=== PATIENT | male | born 1950 | race Caucasian/White ===

== ENCOUNTER 2017-12-23 22:07 | Inpatient (IN) | payer OTHER ==
[~2017-12-23] VITALS: Ht 172.7 cm; Wt 114.9 kg
[2017-12-23] MEDS ORDERED: HYDR-3799 PO (22:36)
[2017-12-23] MEDS ORDERED: GABA300C5 PO (22:36)
[2017-12-23] MEDS ORDERED: OXYC30TA PO (22:36)
[2017-12-23] MEDS ORDERED: METO50TA PO (22:36)
[2017-12-23] MEDS ORDERED: ASPI-516 CHEW (22:36)
[2017-12-24 08:28] VITALS: BP 160/87; PULSE 99; RESP 22; TEMP 97.5; O2SAT 93
[2017-12-24] MEDS ORDERED: EZET10 PO (08:52)
[2017-12-24] MEDS ORDERED: HYDR12.57 PO (08:52)
[2017-12-24] MEDS ORDERED: SYMB160A INH (08:52)
[2017-12-24] MEDS ORDERED: VITA1000 PO (08:52)
[2017-12-24] MEDS ORDERED: TAMS5CAP PO (08:52)
[2017-12-24] MEDS ORDERED: DIAZ5TAB PO (08:52)
[2017-12-24] MEDS ORDERED: NON-FORMULARY DRUG (Oxycodone 30 MG) PO PRN (11:45)
[2017-12-24] MEDS ORDERED: DEXTROSE 50% IN WATER 50 ML VIAL(D50) IV PUSH PRN (12:15)
[2017-12-24] MEDS ORDERED: GLUCAGON 1 MG/ML VIAL OTHER PRN (12:15)
[2017-12-24] MEDS ORDERED: cloNIDine HCL 0.1 MG TAB PO PRN (12:15)
--- NOTE | 2017-12-24 12:16 | HHI.HP ---
[facility] Admission Diagnosis Diagnoses: (1) COPD (chronic obstructive pulmonary disease) Diagnosis: Principal (2) COPD exacerbation Diagnosis: Principal (3) Hypertension Diagnosis: Secondary (4) Osteoarthritis Diagnosis: Secondary (5) Tobacco abuse Diagnosis: Secondary (6) Obese Diagnosis: Secondary (7) BPH (benign prostatic hyperplasia) Diagnosis: Secondary (8) Anxiety Diagnosis: Secondary (9) Hyperlipidemia Diagnosis: Secondary (10) Chronic pain Diagnosis: Secondary Chief Complaint: Difficulty in breathing Travel History International Travel<30 Days: No Contact w/Intl Traveler <30 Da: No Traveled to Known Affected Are: No History of Present Illness Patient is a 67-year-old gentleman who [facility] department with increasing shortness of breath. Patient has known COPD and is on chronic steroids and oxygen at home. He states that he ran out of some of his medications also. He is waiting for the [facility] in late [place] to refill them. He is on oxygen at home. Somewhere between 2-5 L/ h came in with increasing shortness of breath and was noted to have a pulse ox about 80% when he arrived off oxygen but he again is chronically on oxygen and has increasing shortness of breath and cough and congestion Will be admitted and placed on antibiotics and steroids Mucinex incentive spirometry and will be given diet Review of Systems Constitutional: COMPLAINS OF: Fatigue, DENIES: Diaphoretic episodes, Fever, Weight gain, Chills, Dizziness, Change in appetite, Night Sweats Endocrine: DENIES: Heat/cold intolerance, Polydipsia, Polyuria, Polyphagia Eyes: DENIES: Blurred vision, Diplopia, Eye inflammation, Eye pain, Vision loss , Photosensitivity, Double Vision Ears, nose, mouth, throat: COMPLAINS OF: Hearing loss, DENIES: Tinnitus, Vertigo, Nasal discharge, Oral lesions, Throat pain, Hoarseness, Ear Pain, Running Nose, Epistaxis, Sinus Pain, Toothache, Odynophagia Respiratory: COMPLAINS OF: Cough, Sputum production, Shortness of breath, DENIES: Apneas, Snoring, Wheezing, Hemoptysis Cardiovascular: COMPLAINS OF: Dyspnea on Exertion, DENIES: Chest pain, Palpitations, Syncope, PND, Lower Extremity Edema, Orthopnea, Claudication Gastrointestinal: DENIES: Abdominal pain, Black stools, Bloody stools, Constipation, Diarrhea, Nausea, Vomiting, Difficulty Swallowing, Anorexia Genitourinary: DENIES: Sexual dysfunction, Urinary frequency, Urinary incontinence Musculoskeletal: COMPLAINS OF: Joint pain, Back pain, Neck pain, DENIES: Muscle aches, Stiffness, Joint Swelling Integumentary: DENIES: Abnormal pigmentation, Nail changes, Pruritus, Rash Hematologic/lymphatic: DENIES: Bruising, Lymphadenopathy Immunologic/allergic: DENIES: Eczema, Urticaria Neurologic: DENIES: Abnormal gait, Headache, Localized weakness, Paresthesias, Seizures, Speech Problems, Tremor, Poor Balance Psychiatric: COMPLAINS OF: Anxiety, DENIES: Confusion, Mood changes, Depression , Hallucinations, Agitation, Suicidal Ideation, Homicidal Ideation, Delusions Except as stated in HPI: all other systems reviewed are Neg Past Family Social History Past Medical History Hypertension COPD Chronic oxygen use BPH Chronic pain Neuropathy Obesity Hyperlipidemia Anxiety Past Surgical History Cholecystectomy Bilateral knee arthroscopic surgeries Polyps removed from his throat Tonsillectomy Shoulder surgery and knee surgery Reported Medications Reported Meds & Active Scripts Active Reported Diazepam 5 Mg Tab 5 Mg PO BID PRN Symbicort Inh (Budesonide/Formoterol Fumarate) 160-4.5 Mcg/Act Aero 2 Puff INH Q12HR Zetia (Ezetimibe) 10 Mg Tab 10 Mg PO DAILY Vitamin D-1000 (Cholecalciferol) 1,000 Unit Tab 2,000 Mg PO DAILY Flomax (Tamsulosin HCl) 0.4 Mg Cap 0.4 Mg PO DAILY Hydrochlorothiazide 12.5 Mg Cap 12.5 Mg PO DAILY Oxycodone (Oxycodone HCl) 30 Mg Tab 30 Mg PO Q6H PRN Aspirin 81 Mg Chew 81 Mg CHEW DAILY Gabapentin 300 Mg Cap 900 Mg PO HS Hydralazine HCl 25 Mg Tablet 25 Mg PO TID Metoprolol Tartrate 50 Mg Tab 50 Mg PO DAILY Allergies: Coded Allergies: lisinopril (Verified Allergy, Severe, 12/23/17) shellfish derived (Verified Allergy, Severe, 12/23/17) pneumococcal vaccine (Verified Adverse Reaction, Intermediate, 12/23/17) Active Ordered Medications Current Medications Pneumococcal Polyvalent Vaccine (Pneumovax-23 Inj) 25 mcg ONCE ONCE IM ; Start 12/25/17 at 10:00; Stop 12/25/17 at 10:01 Aspirin (Aspirin Chew) 81 mg DAILY CHEW ; Start 12/24/17 at 11:45 Budesonide/ Formoterol Fumarate (Symbicort 160-4.5 Mcg Inh) 2 puff Q12HR INH ; Start 12/24/17 at 11:45 Cholecalciferol (Vitamin D3) 2,000 units DAILY PO ; Start 12/24/17 at 11:45 Diazepam (Valium) 5 mg BID PRN PO ANXIETY; Start 12/24/17 at 11:45 EZETIMIBE (Zetia) 10 mg DAILY PO ; Start 12/24/17 at 11:45 Gabapentin (Neurontin) 900 mg HS PO ; Start 12/24/17 at 21:00 Hydralazine HCl (Apresoline) 25 mg TID PO ; Start 12/24/17 at 13:00 Hydrochlorothiazide (Microzide) 12.5 mg DAILY PO ; Start 12/24/17 at 11:45 Metoprolol Tartrate (Lopressor) 50 mg DAILY PO ; Start 12/24/17 at 11:45 Tamsulosin HCl (Flomax) 0.4 mg DAILY PO ; Start 12/24/17 at 11:45 Family History Mother of heart attack and uncontrolled hypertension Father is unknown Social History Former smoker used to smoke 2 packs a day quit in 2013 Denies any alcohol or illicits Physical Exam Vital Signs Vital Signs Date Time Temp Pulse Resp B/P (MAP) Pulse Ox O2 Delivery O2 Flow Rate FiO2 12/24/17 08:28 97.5 99 22 160/87 (111) 93 Physical Exam GENERAL: This is a well-nourished, well-developed patient, in moderate distress. SKIN: No rashes, ecchymoses or lesions. Cool and dry. HEAD: Atraumatic. Normocephalic. No temporal or scalp tenderness. EYES: Pupils equal round and reactive. Extraocular motions intact. No scleral icterus. No injection or drainage. ENT: Nose without bleeding, purulent drainage or septal hematoma. Throat without erythema, tonsillar hypertrophy or exudate. Uvula midline. Airway patent. NECK: Trachea midline. No JVD or lymphadenopathy. Supple, nontender, no meningeal signs. CARDIOVASCULAR: Regular rate and rhythm without murmurs, gallops, or rubs. S1- S2 no S3 or S4 RESPIRATORY: Coarse breath sounds bilaterally with scattered rhonchi and wheezes. Breath sounds equal bilaterally. No wheezes, rales, or rhonchi. GASTROINTESTINAL: Abdomen soft, non-tender, nondistended. No hepato-splenomegaly , or palpable masses. No guarding. Obese MUSCULOSKELETAL: Extremities without clubbing, cyanosis, or edema. No joint tenderness, effusion, or edema noted. No calf tenderness. Negative Homans sign bilaterally. NEUROLOGICAL: Awake and alert. Cranial nerves II through XII intact. Motor and sensory grossly within normal limits. 4 out of 5 muscle strength in all muscle groups. Normal speech. Insight and judgment is limited Mood and behavior somewhat appropriate Imaging INDICATIONS: Shortness of breath. CLINICAL DATA: This is the patient's initial encounter. Patient reports that signs and symptoms have been present for 1 day and indicates a pain score of 8/ 10. MEDICAL/SURGICAL HISTORY: Chronic obstructive pulmonary disease. None. COMPARISON: No prior exams available for comparison. FINDINGS: A single AP erect portable view of the chest was obtained and demonstrate streaky infiltrate in both lung bases left greater than right. There is no focal consolidation or effusion. The heart size is within normal limits. The bony thorax is intact with degenerative change in both glenohumeral joints. Multiple overlying electrocardiogram leads are present. CONCLUSION: Mild streaky infiltrate in both lung bases left greater than right. The chronicity of the finding is not known without prior studies for comparison. This may be chronic and represent scarring or be more acute and could represent an early pneumonia. Caprini VTE Risk Assessment Caprini VTE Risk Assessment: Mod/High Risk (score >= 2) Caprini Risk Assessment Model Point Value = 1 Point Value = 2 Point Value = 3 Point Value = 5 Age 41-60 Minor surgery BMI > 25 kg/m2 Swollen legs Varicose veins or History of unexplained or recurrent spontaneous Oral contraceptives or hormone replacement Sepsis (< 1 month) Serious lung disease, including pneumonia (< 1 month) Abnormal pulmonary function Acute myocardial infarction Congestive heart failure (< 1 month) History of inflammatory bowel disease Medical patient at bed rest Age 61-74 Arthroscopic surgery Major open surgery (> 45 min) Laparoscopic surgery (> 45 min) Malignancy Confined to bed (> 72 hours) Immobilizing plaster cast Central venous access Age >= 75 History of VTE Family history of VTE Factor V Leiden Prothrombin [id number] Lupus anticoagulant Anticardiolipin antibodies Elevated serum homocysteine Heparin-induced thrombocytopenia Other congenital or acquired thrombophilia Stroke (< 1 month) Elective arthroplasty Hip, pelvis, or leg fracture Acute spinal cord injury (< 1 month) Prophylaxis Regimen Total Risk Factor Score Risk Level Prophylaxis Regimen 0-1 Low Early ambulation 2 Moderate Order ONE of the following: *Sequential Compression Device (SCD) *Heparin 5000 units SQ BID 3-4 Higher Order ONE of the following medications: *Heparin 5000 units SQ TID *Enoxaparin/Lovenox 40 mg SQ daily (WT < 150 kg, CrCl > 30 mL/min) *Enoxaparin/Lovenox 30 mg SQ daily (WT < 150 kg, CrCl > 10-29 mL/min) *Enoxaparin/Lovenox 30 mg SQ BID (WT < 150 kg, CrCl > 30 mL/min) AND/OR *Sequential Compression Device (SCD) 5 or more Highest Order ONE of the following medications: *Heparin 5000 units SQ TID (Preferred with Epidurals) *Enoxaparin/Lovenox 40 mg SQ daily (WT < 150 kg, CrCl > 30 mL/min) *Enoxaparin/Lovenox 30 mg SQ daily (WT < 150 kg, CrCl > 10-29 mL/min) *Enoxaparin/Lovenox 30 mg SQ BID (WT < 150 kg, CrCl > 30 mL/min) AND *Sequential Compression Device (SCD) Assessment and Plan Assessment and Plan COPD exacerbation borderline pneumonia Continue on antibiotics with Rocephin and Zithromax Continue on his Symbicort Duo nebs every 6 hours and every 2 hours as needed Incentive spirometry Mucinex Hypertension resume home medications metoprolol and hydralazine and hydrochlorothiazide BPH resume Flomax Chronic pain resume his oxycodone 30 mg every 6 hours Anxiety resume his Valium Hyperlipidemia continue on his Zetia Gabapentin for chronic pain continue it Oxycodone for his chronic pain DVT and GI prophylaxis Code Status Full code Discussed Condition With RN and patient and Physician Certification 2 Midnight Certification Type: Admission for Inpatient Services Order for Inpatient Services The services are ordered in accordance with Medicare regulations or non- Medicare payer requirements, as applicable. In the case of services not specified as inpatient-only, they are appropriately provided as inpatient services in accordance with the 2-midnight benchmark. Estimated LOS (days): 3 days is the estimated time the patient will need to remain in the hospital, assuming treatment plan goals are met and no additional complications. Post-Hospital Plan: Not yet determined Morgan Martinez DO Dec 24, 2017 12:16
[2017-12-24] MEDS ORDERED: RESP: ALBUTEROL 2.5 MG/IPRATROPIUM 0.5 MG NEB (PRN) INH (12:30)
[2017-12-24] MEDS ORDERED: SODIUM CHLORIDE 0.9% FLUSH 10 ML FLUSH IV FLUSH PRN (12:30)
[2017-12-24] MEDS ORDERED: BISACODYL 10 MG SUPP RECTAL PRN (12:30)
[2017-12-24] MEDS ORDERED: oxyCODONE/ACETAMINOPHEN 5 MG/325 MG TAB PO PRN (12:30)
[2017-12-24] MEDS ORDERED: SENNOSIDES 8.6 MG TAB PO PRN (12:30)
[2017-12-24] MEDS ORDERED: oxyCODONE/ACETAMINOPHEN 10 MG/325 MG TAB PO PRN (12:30)
[2017-12-24] MEDS ORDERED: METOCLOPRAMIDE HCL 10 MG/2 ML VIAL IV PUSH PRN (12:30)
[2017-12-24] MEDS ORDERED: LACTULOSE SYRUP 20 GM/30 ML CUP PO PRN (12:30)
[2017-12-24] MEDS ORDERED: NALOXONE HCL 0.4 MG/ML AMP IV PUSH PRN (12:30)
[2017-12-24] MEDS ORDERED: MAGNESIUM HYDROXIDE SUSP 30 ML CUP PO PRN (12:30)
[2017-12-24] MEDS ORDERED: ACETAMINOPHEN 325 MG TAB PO PRN ×2 (12:30)
[2017-12-24] MEDS ORDERED: MORPHINE SULFATE 4 MG/ML INJ IV PUSH PRN ×3 (13:00)
[2017-12-24] MEDS ORDERED: ONDANSETRON ODT 4 MG TAB PO PRN (13:00)
[2017-12-24] MEDS ORDERED: guaiFENesin E.R. 600 MG TAB PO ONE (13:00)
[2017-12-24] MEDS: hydrALAZINE HCL 25 MG TAB PO SCH ×2 (13:17→17:52)
[2017-12-24] MEDS: EZETIMIBE 10 MG TAB PO SCH (13:17)
[2017-12-24] MEDS: ASPIRIN 81 MG CHEW TAB CHEW SCH (13:17)
[2017-12-24] MEDS: HYDROCHLOROTHIAZIDE 12.5 MG CAP PO SCH (13:17)
[2017-12-24] MEDS: METOPROLOL TARTRATE 50 MG TAB PO SCH (13:18)
[2017-12-24] MEDS: TAMSULOSIN HCL 0.4 MG CAP PO SCH (13:18)
[2017-12-24] MEDS: CHOLECALCIFEROL (VIT D3) 1000 UNIT TAB PO SCH (13:18)
[2017-12-24] MEDS: ENOXAPARIN SODIUM 40 MG/0.4 ML SYRINGE SQ SCH (14:00)
[2017-12-24] MEDS: cefTRIAXone INJ 1,000 MG in SODIUM CHLORIDE 0.9% INJ 100 ML IV SCH (14:35)
[2017-12-24] MEDS: DIAZEPAM 5 MG TAB PO PRN ×2 (14:35→21:27)
[2017-12-24] MEDS: SODIUM CHLOR 0.9% 1000 ML INJ 1,000 ML IV SCH ×2 (14:35→22:54)
[2017-12-24] MEDS: methylPREDNISolone SOD SUCC 125 MG/2 ML VIAL IV PUSH SCH ×2 (14:35→17:55)
[2017-12-24] MEDS: AZITHROMYCIN INJ 500 MG in SODIUM CHLOR 0.9% 250 ML INJ 250 ML IV SCH (15:24)
[2017-12-24 15:45] LABS: TROPONIN I LESS THAN 0.02 NG/ML (0.02-0.05)
[2017-12-24 16:25] VITALS: BP 129/73; PULSE 69; RESP 21; TEMP 97.3; O2SAT 93
[2017-12-24] MEDS: INSULIN ASPART SUPPLEMENTAL SCALE SQ SCH ×2 (17:00→20:40)
[2017-12-24] MEDS: RESP: ALBUTEROL 2.5 MG/IPRATROPIUM 0.5 MG NEB (SCH) INH ×2 (17:19→21:27)
[2017-12-24 17:20] VITALS: O2SAT 91
[2017-12-24] MEDS: GABAPENTIN 300 MG CAP PO SCH (17:52)
[2017-12-24 20:00] VITALS: BP 160/93; PULSE 71; RESP 18; TEMP 97.7; O2SAT 95
[2017-12-24] MEDS: guaiFENesin E.R. 600 MG TAB PO SCH (20:40)
[2017-12-24] MEDS: SODIUM CHLORIDE 0.9% FLUSH 10 ML FLUSH IV FLUSH SCH (20:40)
[2017-12-24] MEDS: DOCUSATE SODIUM 50 MG/SENNA 8.6 MG TAB PO SCH (20:40)
[2017-12-24] MEDS ORDERED: GABAPENTIN 300 MG CAP PO SCH (21:00)
[2017-12-24] MEDS ORDERED: SODIUM CHLORIDE 0.9% FLUSH 10 ML FLUSH IV FLUSH SCH (21:00)
[2017-12-24 21:07] VITALS: PULSE 87
[2017-12-24] MEDS: BUDESONIDE-FORMOTEROL 160/4.5 MCG INHALER INH SCH (21:20)
[2017-12-24 21:22] LABS: TROPONIN I LESS THAN 0.02 NG/ML (0.02-0.05)
[2017-12-24 21:27] VITALS: O2SAT 92
[2017-12-25] VITALS (8 sets, daily range): BP systolic 126–156; BP diastolic 66–87; PULSE 65–89; RESP 18; TEMP 97.3–97.9; O2SAT 92–95
[2017-12-25] MEDS: methylPREDNISolone SOD SUCC 125 MG/2 ML VIAL IV PUSH SCH ×5 (00:35→23:27)
[2017-12-25] MEDS: RESP: ALBUTEROL 2.5 MG/IPRATROPIUM 0.5 MG NEB (SCH) INH ×4 (03:41→22:09)
[2017-12-25 06:05] LABS: AUTOMATED NEUTROPHIL # 8.1 TH/MM3 (1.8-7.7); BASOPHIL % 0.1 % (0.0-2.0); HEMATOCRIT 38.3 % (39.0-51.0); LYMPH % 8.2 % (9.0-44.0); LYMPHOCYTE # 0.7 TH/MM3 (1.0-4.8); MEAN CELL VOLUME 87.7 FL (80.0-100.0); MEAN CORPUSCULAR HEMOGLOBIN 29.8 PG (27.0-34.0); MEAN PLATELET VOLUME 7.4 FL (7.0-11.0); MONO % 2.2 % (0.0-8.0); MONOCYTE # 0.2 TH/MM3 (0-0.9); NEUT % 89.5 % (16.0-70.0); PLATELET COUNT 230 TH/MM3 (150-450); RED BLOOD COUNT 4.37 MIL/MM3 (4.50-5.90); RED CELL DISTRIBUTION WIDTH 15.1 % (11.6-17.2); WHITE BLOOD COUNT 9.1 TH/MM3 (4.0-11.0)
[2017-12-25 06:28] LABS: AST (GOT) 18 U/L (15-37); BICARBONATE 36.2 MEQ/L (21.0-32.0); BLOOD UREA NITROGEN 13 MG/DL (7-18); CALCIUM 9.1 MG/DL (8.5-10.1); CHLORIDE 88 MEQ/L (98-107); GLOMERULAR FILTRATION RATE 97 ML/MIN (>89); GLUCOSE,RANDOM 156 MG/DL (74-106); SODIUM (NA) 131 MEQ/L (136-145)
[2017-12-25 06:29] LABS: MAGNESIUM 1.9 MG/DL (1.5-2.5)
[2017-12-25 06:37] LABS: ALKALINE PHOSPHATASE 53 U/L (45-117); ALT (GPT) 28 U/L (12-78); FREE T4 1.19 NG/DL (0.76-1.46); PHOSPHORUS 2.7 MG/DL (2.5-4.9); TOTAL BILIRUBIN ADULT 0.3 MG/DL (0.2-1.0); TOTAL PROTEIN 6.4 GM/DL (6.4-8.2)
[2017-12-25] MEDS: TAMSULOSIN HCL 0.4 MG CAP PO SCH (08:00)
[2017-12-25] MEDS: GABAPENTIN 300 MG CAP PO SCH ×3 (08:00→18:37)
[2017-12-25] MEDS: INSULIN ASPART SUPPLEMENTAL SCALE SQ SCH ×4 (08:00→20:46)
[2017-12-25] MEDS: METOPROLOL TARTRATE 50 MG TAB PO SCH (08:01)
[2017-12-25] MEDS: hydrALAZINE HCL 25 MG TAB PO SCH ×3 (08:01→18:38)
[2017-12-25] MEDS: HYDROCHLOROTHIAZIDE 12.5 MG CAP PO SCH (08:02)
[2017-12-25] MEDS: DOCUSATE SODIUM 50 MG/SENNA 8.6 MG TAB PO SCH ×2 (08:02→20:42)
[2017-12-25] MEDS: guaiFENesin E.R. 600 MG TAB PO SCH ×2 (08:02→20:42)
[2017-12-25] MEDS: EZETIMIBE 10 MG TAB PO SCH (08:02)
[2017-12-25] MEDS: CHOLECALCIFEROL (VIT D3) 1000 UNIT TAB PO SCH (08:03)
[2017-12-25] MEDS: ASPIRIN 81 MG CHEW TAB CHEW SCH (08:03)
[2017-12-25] MEDS: SODIUM CHLORIDE 0.9% FLUSH 10 ML FLUSH IV FLUSH SCH ×2 (08:04→20:43)
[2017-12-25] MEDS: SODIUM CHLOR 0.9% 1000 ML INJ 1,000 ML IV SCH ×2 (08:04→19:00)
[2017-12-25] MEDS: BUDESONIDE-FORMOTEROL 160/4.5 MCG INHALER INH SCH ×2 (08:04→20:42)
[2017-12-25] MEDS: DIAZEPAM 5 MG TAB PO PRN ×2 (09:47→22:21)
[2017-12-25] MEDS ORDERED: PNEUMOCOCCAL POLYVALENT INJ 25 MCG/0.5 ML SYR IM ONE (10:00)
[2017-12-25] MEDS: SODIUM CHLORIDE 0.9% FLUSH 10 ML FLUSH IV FLUSH PRN ×3 (12:14→18:38)
[2017-12-25 12:27] LABS: HEMOGLOBIN A1C 5.7 % (4.3-6.0)
[2017-12-25] MEDS: ENOXAPARIN SODIUM 40 MG/0.4 ML SYRINGE SQ SCH (13:25)
[2017-12-25] MEDS: cefTRIAXone INJ 1,000 MG in SODIUM CHLORIDE 0.9% INJ 100 ML IV SCH (13:25)
--- NOTE | 2017-12-25 13:39 | HHI.PR ---
Subjective Remarks Patient is a 67-year-old gentleman who presented initially to the [facility] emergency department with increasing shortness of breath. Patient has known COPD and is on chronic steroids and oxygen at home. He states that he ran out of some of his medications also. He is waiting for the [facility] in late [place] to refill them. He is on oxygen at home. Somewhere between 2-5 L/ h came in with increasing shortness of breath and was noted to have a pulse ox about 80% when he arrived off oxygen but he again is chronically on oxygen and has increasing shortness of breath and cough and congestion Will be admitted and placed on antibiotics and steroids Mucinex incentive spirometry and will be given diet 6-24 BREATHING A LITTLE BETTER WANTS HIS MEDICATIONS ADJUSTED DW RN AND PT AND CM AM LABS DW RN AND PT CHRONICALLY ON PAIN MEDS AND OXYGEN AT HOME Objective Vitals Vital Signs Date Time Temp Pulse Resp B/P (MAP) Pulse Ox O2 Delivery O2 Flow Rate FiO2 12/25/17 09:08 Simple Mask 6.00 Humidified 12/25/17 08:00 97.9 89 18 156/82 (106) 95 12/25/17 04:01 65 12/25/17 04:00 97.3 69 18 135/87 (103) 93 12/25/17 02:37 18 12/25/17 00:00 97.4 72 18 135/77 (96) 93 12/25/17 00:00 71 12/24/17 22:33 Nasal Cannula 6.00 Humidified 12/24/17 21:27 92 Nasal Cannula 6.00 12/24/17 21:07 87 12/24/17 20:00 97.7 71 18 160/93 (115) 95 12/24/17 17:20 91 Nasal Cannula 6.00 12/24/17 16:25 97.3 69 21 129/73 (91) 93 I/O 12/24/17 12/24/17 12/24/17 12/25/17 12/25/17 12/25/17 07:00 15:00 23:00 07:00 15:00 23:00 Intake Total 950 ml Output Total 300 ml Balance 650 ml Intake Oral 600 ml IV Total 350 ml Output Urine Total 300 ml Result Diagram: 12/25/17 0453 12/25/17 0453 Other Results Laboratory Tests Test 6/23/18 15:02 12/24/17 20:39 12/25/17 04:53 Total Creatine Kinase 55 U/L 54 U/L Troponin I LESS THAN 0.02 NG/ML LESS THAN 0.02 NG/ML White Blood Count 9.1 TH/MM3 Red Blood Count 4.37 MIL/MM3 Hemoglobin 13.0 GM/DL Hematocrit 38.3 % Mean Corpuscular Volume 87.7 FL Mean Corpuscular Hemoglobin 29.8 PG Mean Corpuscular Hemoglobin Concent 34.0 % Red Cell Distribution Width 15.1 % Platelet Count 230 TH/MM3 Mean Platelet Volume 7.4 FL Neutrophils (%) (Auto) 89.5 % Lymphocytes (%) (Auto) 8.2 % Monocytes (%) (Auto) 2.2 % Eosinophils (%) (Auto) 0.0 % Basophils (%) (Auto) 0.1 % Neutrophils # (Auto) 8.1 TH/MM3 Lymphocytes # (Auto) 0.7 TH/MM3 Monocytes # (Auto) 0.2 TH/MM3 Eosinophils # (Auto) 0.0 TH/MM3 Basophils # (Auto) 0.0 TH/MM3 CBC Comment DIFF FINAL Differential Comment Blood Urea Nitrogen 13 MG/DL Creatinine 0.80 MG/DL Random Glucose 156 MG/DL Total Protein 6.4 GM/DL Albumin 3.0 GM/DL Calcium Level 9.1 MG/DL Phosphorus Level 2.7 MG/DL Magnesium Level 1.9 MG/DL Alkaline Phosphatase 53 U/L Aspartate Amino Transf (AST/SGOT) 18 U/L Alanine Aminotransferase (ALT/SGPT) 28 U/L Total Bilirubin 0.3 MG/DL Sodium Level 131 MEQ/L Potassium Level 3.3 MEQ/L Chloride Level 88 MEQ/L Carbon Dioxide Level 36.2 MEQ/L Anion Gap 7 MEQ/L Estimat Glomerular Filtration Rate 97 ML/MIN Hemoglobin A1c 5.7 % Free Thyroxine 1.19 NG/DL Thyroid Stimulating Hormone 3rd Gen 0.102 uIU/ML Objective Remarks GENERAL: Alert and oriented talkative and cooperative in no acute distress SKIN: Warm and dry. HEAD: Atraumatic. Normocephalic. EYES: Pupils equal and round. No scleral icterus. No injection or drainage. Extraocular muscles intact ENT: No nasal bleeding or discharge. Mucous membranes pink and moist. NECK: Trachea midline. No JVD. Supple CARDIOVASCULAR: Regular rate and rhythm. S1-S2 no S3 or S4 RESPIRATORY: No accessory muscle use. Decreased breath sounds bilaterally. Breath sounds equal bilaterally. GASTROINTESTINAL: Abdomen soft, non-tender, nondistended. Hepatic and splenic margins not palpable. Obese MUSCULOSKELETAL: Extremities without clubbing, cyanosis, or edema. No obvious deformities. NEUROLOGICAL: Awake and alert. No obvious cranial nerve deficits. Motor grossly within normal limits. Five out of 5 muscle strength in the arms and legs. Normal speech. PSYCHIATRIC: Appropriate mood and affect; insight and judgment normal. Medications and IVs Current Medications Pneumococcal Polyvalent Vaccine (Pneumovax-23 Inj) 25 mcg ONCE ONCE IM ; Start 12/25/17 at 10:00; Stop 12/25/17 at 10:01; Status DC Aspirin (Aspirin Chew) 81 mg DAILY CHEW Last administered on 12/25/17 08:03; Start 12/24/17 at 11:45 Budesonide/ Formoterol Fumarate (Symbicort 160-4.5 Mcg Inh) 2 puff Q12HR INH Last administered on 12/25/17 08:04; Start 12/24/17 at 11:45 Cholecalciferol (Vitamin D3) 2,000 units DAILY PO Last administered on 08:03; Start 12/24/17 at 11:45 Diazepam (Valium) 5 mg BID PRN PO ANXIETY Last administered on 12/25/17 09:47 ; Start 12/24/17 at 11:45 EZETIMIBE (Zetia) 10 mg DAILY PO Last administered on 12/25/17 08:02; Start at 11:45 Gabapentin (Neurontin) 900 mg HS PO ; Start 12/24/17 at 21:00; Stop 12/24/17 at 21:00; Status DC Hydralazine HCl (Apresoline) 25 mg TID PO Last administered on 12/25/17 13:24 ; Start 12/24/17 at 13:00 Hydrochlorothiazide (Microzide) 12.5 mg DAILY PO Last administered on 08:02; Start 12/24/17 at 11:45 Metoprolol Tartrate (Lopressor) 50 mg DAILY PO Last administered on 12/25/17 08:01; Start 12/24/17 at 11:45 Tamsulosin HCl (Flomax) 0.4 mg DAILY PO Last administered on 12/25/17at 08:00; Start 12/24/17 at 11:45 Non-Formulary Medication 30 mg Q6H PRN PO PAIN; Start 12/24/17 at 11:45; Stop 12/24/17 at 12:34; Status DC Dextrose (D50w (Vial) Inj) 50 ml UNSCH PRN IV PUSH HYPOGLYCEMIA-SEE COMMENTS; Start 12/24/17 at 12:15 Glucagon (Glucagon Inj) 1 mg UNSCH PRN OTHER HYPOGLYCEMIA-SEE COMMENTS; Start 12/24/17 at 12:15 Clonidine (Catapres) 0.1 mg Q4H PRN PO SBP>160, DBP>90; Start 12/24/17 at 12:15 Insulin Aspart (NovoLOG SUPPLEMENTAL SCALE) 1 ACHS SLIDING SCALE SQ Last administered on 12/24/17at 20:40; Start 12/24/17 at 17:00 Sodium Chloride 1,000 ml @ 100 mls/hr Q10H IV Last administered on 12/24/17at 14:35; Start 12/24/17 at 13:00 Sodium Chloride (NS Flush) 2 ml UNSCH PRN IV FLUSH FLUSH AFTER USING IV ACCESS Last administered on 12/25/17at 12:14; Start 12/24/17 at 12:30 Sodium Chloride (NS Flush) 2 ml BID IV FLUSH Last administered on 12/25/17at 08: 04; Start 12/24/17 at 21:00 Acetaminophen (Tylenol) 650 mg Q4H PRN PO TEMP > 100.4; Start 12/24/17 at 12:30 Ondansetron HCl (Zofran Odt) 4 mg Q6H PRN PO NAUSEA OR VOMITING; Start at 13:00 Metoclopramide HCl (Reglan Inj) 5 mg Q6H PRN IV PUSH NAUSEA OR VOMITING; Start 12/24/17 at 12:30 Enoxaparin Sodium (Lovenox Inj) 40 mg Q24H SQ Last administered on 12/25/17at 13 :25; Start 12/24/17 at 14:00 Acetaminophen (Tylenol) 650 mg Q6H PRN PO PAIN SCALE 1 TO 2; Start 12/24/17 at 12:30 Oxycodone/ Acetaminophen (Percocet 5-325 Mg) 1 tab Q6H PRN PO PAIN SCALE 3 TO 5; Start 12/24/17 at 12:30 Oxycodone/ Acetaminophen (Percocet 10-325 Mg) 1 tab Q6H PRN PO PAIN SCALE 6 TO 10; Start 12/24/17 at 12:30 Morphine Sulfate (Morphine Inj) 2 mg Q3H PRN IV PUSH Pain 3-5; if unable to take PO; Start 12/24/17 at 13:00 Morphine Sulfate (Morphine Inj) 4 mg Q3H PRN IV PUSH Pain 6-10;if unable to take PO; Start 12/24/17 at 13:00 Morphine Sulfate (Morphine Inj) 4 mg Q3H PRN IV PUSH BREAKTHROUGH PAIN; Start 12/24/17 at 13:00 Naloxone HCl (Narcan Inj) 0.4 mg UNSCH PRN IV PUSH SEE LABEL COMMENTS; Start at 12:30 Senna/Docusate Sodium (Rekha-Colace) 1 tab BID PO Last administered on at 20:40; Start 12/24/17 at 21:00 Magnesium Hydroxide (Milk Of Magnesia Liq) 30 ml Q12H PRN PO Mild constipation ; Start 12/24/17 at 12:30 Sennosides (Senokot) 17.2 mg Q12H PRN PO Moderate constipation; Start 12/24/17 at 12:30 Bisacodyl (Dulcolax Supp) 10 mg DAILY PRN RECTAL SEVERE CONSITIPATION; Start at 12:30 Lactulose (Lactulose Liq) 30 ml DAILY PRN PO SEVERE CONSITIPATION; Start at 12:30 Sodium Chloride (NS Flush) 2 ml UNSCH PRN IV FLUSH FLUSH AFTER USING IV ACCESS ; Start 12/24/17 at 12:30; Stop 12/24/17 at 13:01; Status DC Sodium Chloride (NS Flush) 2 ml BID IV FLUSH ; Start 12/24/17 at 21:00; Stop at 21:00; Status DC Ceftriaxone Sodium 1000 mg/ Sodium Chloride 100 ml @ 200 mls/hr Q24H IV Last administered on 12/25/17at 13:25; Start 12/24/17 at 14:00 Azithromycin 500 mg/Sodium Chloride 250 ml @ 250 mls/hr Q24H IV Last administered on 12/24/17at 15:24; Start 12/24/17 at 15:00 Albuterol/ Ipratropium (Duoneb Neb) 1 ampule Q6HR NEB INH Last administered on 12/24/17at 21:27; Start 12/24/17 at 16:00 Albuterol/ Ipratropium (Duoneb Neb) 1 ampule Q4HR NEB PRN INH SHORTNESS OF BREATH; Start 12/24/17 at 12:30 Methylprednisolone Sodium Succinate (SoluMEDROL INJ) 60 mg Q6HR IV PUSH Last administered on 12/25/17at 12:13; Start 12/24/17 at 13:15 Guaifenesin (Mucinex Er) 1,200 mg ONCE ONCE PO Last administered on 12/24/17at 13:17; Start 12/24/17 at 13:00; Stop 12/24/17 at 13:01; Status DC Guaifenesin (Mucinex Er) 1,200 mg BID PO Last administered on 12/25/17at 08:02; Start 12/24/17 at 21:00 Oxycodone HCl (Roxicodone) 30 mg Q6H PO Last administered on 12/25/17at 13:24; Start 12/24/17 at 14:00 Gabapentin (Neurontin) 900 mg TID PO Last administered on 12/25/17at 13:24; Start 12/24/17 at 18:00 A/P Problem List: (1) COPD (chronic obstructive pulmonary disease) ICD Code: J44.9 - Chronic obstructive pulmonary disease, unspecified (2) COPD exacerbation ICD Code: J44.1 - Chronic obstructive pulmonary disease with (acute) exacerbation (3) Hypertension ICD Code: I10 - Essential (primary) hypertension (4) Osteoarthritis ICD Code: M19.90 - Unspecified osteoarthritis, unspecified site (5) Tobacco abuse ICD Code: Z72.0 - Tobacco use (6) Obese ICD Code: E66.9 - Obesity, unspecified (7) BPH (benign prostatic hyperplasia) ICD Code: N40.0 - Benign prostatic hyperplasia without lower urinary tract symptoms (8) Anxiety ICD Code: F41.9 - Anxiety disorder, unspecified (9) Hyperlipidemia ICD Code: E78.5 - Hyperlipidemia, unspecified (10) Chronic pain ICD Code: G89.29 - Other chronic pain Assessment and Plan COPD exacerbation borderline pneumonia Continue on antibiotics with Rocephin and Zithromax Continue on his Symbicort Duo nebs every 6 hours and every 2 hours as needed Incentive spirometry Mucinex Hypertension resume home medications metoprolol and hydralazine and hydrochlorothiazide BPH resume Flomax Chronic pain resume his oxycodone 30 mg every 6 hours Anxiety resume his Valium Hyperlipidemia continue on his Zetia Gabapentin for chronic pain continue it Oxycodone for his chronic pain DVT and GI prophylaxis Hypokalemia will replace Discharge Planning In the next 24-48 hours Morgan Martinez DO Dec 25, 2017 13:39
[2017-12-25] MEDS ORDERED: POTASSIUM CHLORIDE 20 MEQ CONTROLLED RELEASE TAB PO SCH (13:45)
[2017-12-25] MEDS: AZITHROMYCIN INJ 500 MG in SODIUM CHLOR 0.9% 250 ML INJ 250 ML IV SCH (13:57)
--- NOTE | 2017-12-25 14:08 | HHI.FF ---
Face to Face Verification Diagnosis: (1) Chronic pain (2) BPH (benign prostatic hyperplasia) (3) Hyperlipidemia (4) Anxiety (5) Hypertension (6) COPD exacerbation (7) Tobacco abuse (8) Osteoarthritis (9) Obese (10) COPD (chronic obstructive pulmonary disease) Physical Therapy Order: Evaluate and Treat, Improve ambulation, Strength and gait training Occupational Therapy Order: Evaluate and Treat, Improve ADL, Gross motor coordination, Fine motor coordination Home Health Nursing Order: Medical education Signs/symptoms of disease process Oxygen administration education Medication education-adverse effect Home Health Aide Order: To Assist In: Bathing and personal care, franchise sales manager and meal prep I have seen patient Brandon Hernandez on 12/25/17. My clinical findings support the need for the requested home health care services because: Ltd mobility - disease progression Patient has SOB Deconditioned w/ increased weakness I certify that my clinical findings support that this patient is homebound because: Hx COPD- exertion dyspnea/weakness Morgan Martinez DO Dec 25, 2017 14:08
[2017-12-25] MEDS ORDERED: POTASSIUM CHLORIDE 20 MEQ CONTROLLED RELEASE TAB PO ONE (15:45)
[2017-12-25] MEDS ORDERED: LACTOBACILLUS ACIDOPHILUS TAB PO ONE (19:45)
[2017-12-26] VITALS (13 sets, daily range): BP systolic 144–162; BP diastolic 79–84; PULSE 58–90; RESP 17–18; TEMP 97–97.6; O2SAT 91–97
[2017-12-26] MEDS: RESP: ALBUTEROL 2.5 MG/IPRATROPIUM 0.5 MG NEB (SCH) INH ×4 (04:00→20:50)
[2017-12-26] MEDS: SODIUM CHLOR 0.9% 1000 ML INJ 1,000 ML IV SCH ×2 (05:00→13:33)
[2017-12-26] MEDS: methylPREDNISolone SOD SUCC 125 MG/2 ML VIAL IV PUSH SCH ×3 (05:55→18:01)
[2017-12-26] MEDS: INSULIN ASPART SUPPLEMENTAL SCALE SQ SCH ×4 (08:00→20:21)
[2017-12-26] MEDS: TAMSULOSIN HCL 0.4 MG CAP PO SCH (08:13)
[2017-12-26] MEDS: CHOLECALCIFEROL (VIT D3) 1000 UNIT TAB PO SCH (08:13)
[2017-12-26] MEDS: HYDROCHLOROTHIAZIDE 12.5 MG CAP PO SCH (08:14)
[2017-12-26] MEDS: hydrALAZINE HCL 25 MG TAB PO SCH ×3 (08:14→17:59)
[2017-12-26] MEDS: ASPIRIN 81 MG CHEW TAB CHEW SCH (08:14)
[2017-12-26] MEDS: EZETIMIBE 10 MG TAB PO SCH (08:16)
[2017-12-26] MEDS: GABAPENTIN 300 MG CAP PO SCH ×3 (08:16→17:59)
[2017-12-26] MEDS: LACTOBACILLUS ACIDOPHILUS TAB PO SCH ×3 (08:17→17:59)
[2017-12-26] MEDS: DOCUSATE SODIUM 50 MG/SENNA 8.6 MG TAB PO SCH ×2 (08:17→20:15)
[2017-12-26] MEDS: BUDESONIDE-FORMOTEROL 160/4.5 MCG INHALER INH SCH ×2 (08:18→20:13)
[2017-12-26] MEDS: SODIUM CHLORIDE 0.9% FLUSH 10 ML FLUSH IV FLUSH SCH ×2 (08:18→20:14)
[2017-12-26] MEDS: METOPROLOL TARTRATE 50 MG TAB PO SCH (08:19)
[2017-12-26] MEDS: DIAZEPAM 5 MG TAB PO PRN ×2 (08:33→20:14)
[2017-12-26] MEDS: guaiFENesin E.R. 600 MG TAB PO SCH ×2 (08:36→20:14)
[2017-12-26 09:57] LABS: BASOPHIL % 0.2 % (0.0-2.0); HEMATOCRIT 40.2 % (39.0-51.0); HEMOGLOBIN 13.5 GM/DL (13.0-17.0); LYMPH % 4.5 % (9.0-44.0); LYMPHOCYTE # 0.5 TH/MM3 (1.0-4.8); MEAN CELL VOLUME 86.3 FL (80.0-100.0); MEAN CORPUSCULAR HGB CONC 33.5 % (32.0-36.0); MEAN PLATELET VOLUME 7.6 FL (7.0-11.0); MONO % 2.6 % (0.0-8.0); MONOCYTE # 0.3 TH/MM3 (0-0.9); NEUT % 92.7 % (16.0-70.0); PLATELET COUNT 273 TH/MM3 (150-450); RED BLOOD COUNT 4.65 MIL/MM3 (4.50-5.90); RED CELL DISTRIBUTION WIDTH 15.1 % (11.6-17.2); WHITE BLOOD COUNT 10.8 TH/MM3 (4.0-11.0)
[2017-12-26 10:43] LABS: ALBUMIN 3.1 GM/DL (3.4-5.0); AST (GOT) 17 U/L (15-37); BICARBONATE 28.2 MEQ/L (21.0-32.0); BLOOD UREA NITROGEN 14 MG/DL (7-18); CALCIUM 8.8 MG/DL (8.5-10.1); CHLORIDE 87 MEQ/L (98-107); CREATININE 0.79 MG/DL (0.60-1.30); GLOMERULAR FILTRATION RATE 98 ML/MIN (>89); GLUCOSE,RANDOM 112 MG/DL (74-106); SODIUM (NA) 126 MEQ/L (136-145)
[2017-12-26 10:48] LABS: ALKALINE PHOSPHATASE 54 U/L (45-117); ALT (GPT) 29 U/L (12-78); PHOSPHORUS 2.5 MG/DL (2.5-4.9); TOTAL BILIRUBIN ADULT 0.3 MG/DL (0.2-1.0); TOTAL PROTEIN 6.6 GM/DL (6.4-8.2)
--- NOTE | 2017-12-26 11:27 | HHI.PR ---
Subjective Remarks Patient is a 67-year-old gentleman who presented initially to the [facility] emergency department with increasing shortness of breath. Patient has known COPD and is on chronic steroids and oxygen at home. He states that he ran out of some of his medications also. He is waiting for the [facility] in [place] to refill them. He is on oxygen at home. Somewhere between 2-5 L/ h came in with increasing shortness of breath and was noted to have a pulse ox about 80% when he arrived off oxygen but he again is chronically on oxygen and has increasing shortness of breath and cough and congestion Will be admitted and placed on antibiotics and steroids Mucinex incentive spirometry and will be given diet 12-25 BREATHING A LITTLE BETTER WANTS HIS MEDICATIONS ADJUSTED DW RN AND PT AND CM AM LABS DW RN AND PT CHRONICALLY ON PAIN MEDS AND OXYGEN AT HOME 12-26 BREATHING A LITTLE BETTER WANTS MEDICATIONS AT TIME HE TAKES THEM AT HOME DW RN ON CHRONIC PAIN MEDICATIONS ON CHRONIC OXYGEN [facility] PT AND RN LABS SHOW HYPONATREMIA ADD NACL TAB TID Objective Vitals Vital Signs Date Time Temp Pulse Resp B/P (MAP) Pulse Ox O2 Delivery O2 Flow Rate FiO2 12/26/17 08:36 97.6 77 17 153/84 (107) 95 12/26/17 08:01 91 Nasal Cannula 6.00 12/26/17 04:00 58 12/26/17 00:00 62 12/26/17 00:00 97.4 80 18 153/84 (107) 94 12/25/17 22:11 93 Nasal Cannula 6.00 12/25/17 20:00 69 12/25/17 20:00 97.5 67 18 133/75 (94) 95 12/25/17 20:00 95 Nasal Cannula 6.00 12/25/17 20:00 97.5 67 18 133/75 (94) 95 12/25/17 16:00 97.3 89 18 136/66 (89) 93 12/25/17 13:50 Nasal Cannula 6.00 12/25/17 12:00 97.8 78 18 126/66 (86) 92 I/O 12/25/17 12/25/17 12/25/17 12/26/17 12/26/17 12/26/17 07:00 15:00 23:00 07:00 15:00 23:00 Intake Total 960 ml 480 ml Balance 960 ml 480 ml Intake Oral 960 ml 480 ml # Voids 6 4 # Bowel Movements 3 2 Result Diagram: 12/26/17 0903 12/26/17 0905 Other Results Laboratory Tests Test 12/24/17 15:02 12/24/17 20:39 12/25/17 04:53 12/26/17 09:03 Total Creatine Kinase 55 U/L 54 U/L Troponin I LESS THAN 0.02 NG/ML LESS THAN 0.02 NG/ML White Blood Count 9.1 TH/MM3 10.8 TH/MM3 Red Blood Count 4.37 MIL/MM3 4.65 MIL/MM3 Hemoglobin 13.0 GM/DL 13.5 GM/DL Hematocrit 38.3 % 40.2 % Mean Corpuscular Volume 87.7 FL 86.3 FL Mean Corpuscular Hemoglobin 29.8 PG 29.0 PG Mean Corpuscular Hemoglobin Concent 34.0 % 33.5 % Red Cell Distribution Width 15.1 % 15.1 % Platelet Count 230 TH/MM3 273 TH/MM3 Mean Platelet Volume 7.4 FL 7.6 FL Neutrophils (%) (Auto) 89.5 % 92.7 % Lymphocytes (%) (Auto) 8.2 % 4.5 % Monocytes (%) (Auto) 2.2 % 2.6 % Eosinophils (%) (Auto) 0.0 % 0.0 % Basophils (%) (Auto) 0.1 % 0.2 % Neutrophils # (Auto) 8.1 TH/MM3 10.0 TH/MM3 Lymphocytes # (Auto) 0.7 TH/MM3 0.5 TH/MM3 Monocytes # (Auto) 0.2 TH/MM3 0.3 TH/MM3 Eosinophils # (Auto) 0.0 TH/MM3 0.0 TH/MM3 Basophils # (Auto) 0.0 TH/MM3 0.0 TH/MM3 CBC Comment DIFF FINAL DIFF FINAL Differential Comment Blood Urea Nitrogen 13 MG/DL Creatinine 0.80 MG/DL Random Glucose 156 MG/DL Total Protein 6.4 GM/DL Albumin 3.0 GM/DL Calcium Level 9.1 MG/DL Phosphorus Level 2.7 MG/DL Magnesium Level 1.9 MG/DL Alkaline Phosphatase 53 U/L Aspartate Amino Transf (AST/SGOT) 18 U/L Alanine Aminotransferase (ALT/SGPT) 28 U/L Total Bilirubin 0.3 MG/DL Sodium Level 131 MEQ/L Potassium Level 3.3 MEQ/L Chloride Level 88 MEQ/L Carbon Dioxide Level 36.2 MEQ/L Anion Gap 7 MEQ/L Estimat Glomerular Filtration Rate 97 ML/MIN Hemoglobin A1c 5.7 % Free Thyroxine 1.19 NG/DL Thyroid Stimulating Hormone 3rd Gen 0.102 uIU/ML Hematology Comments Test 12/26/17 09:05 Blood Urea Nitrogen 14 MG/DL Creatinine 0.79 MG/DL Random Glucose 112 MG/DL Total Protein 6.6 GM/DL Albumin 3.1 GM/DL Calcium Level 8.8 MG/DL Phosphorus Level 2.5 MG/DL Magnesium Level 2.0 MG/DL Alkaline Phosphatase 54 U/L Aspartate Amino Transf (AST/SGOT) 17 U/L Alanine Aminotransferase (ALT/SGPT) 29 U/L Total Bilirubin 0.3 MG/DL Sodium Level 126 MEQ/L Potassium Level 3.8 MEQ/L Chloride Level 87 MEQ/L Carbon Dioxide Level 28.2 MEQ/L Anion Gap 11 MEQ/L Estimat Glomerular Filtration Rate 98 ML/MIN Objective Remarks GENERAL: Alert and oriented talkative and cooperative in no acute distress SKIN: Warm and dry. HEAD: Atraumatic. Normocephalic. EYES: Pupils equal and round. No scleral icterus. No injection or drainage. Extraocular muscles intact ENT: No nasal bleeding or discharge. Mucous membranes pink and moist. NECK: Trachea midline. No JVD. Supple CARDIOVASCULAR: Regular rate and rhythm. S1-S2 no S3 or S4 RESPIRATORY: No accessory muscle use. Decreased breath sounds bilaterally. Breath sounds equal bilaterally. GASTROINTESTINAL: Abdomen soft, non-tender, nondistended. Hepatic and splenic margins not palpable. Obese MUSCULOSKELETAL: Extremities without clubbing, cyanosis, or edema. No obvious deformities. NEUROLOGICAL: Awake and alert. No obvious cranial nerve deficits. Motor grossly within normal limits. Five out of 5 muscle strength in the arms and legs. Normal speech. PSYCHIATRIC: Appropriate mood and affect; insight and judgment normal. Medications and IVs Current Medications Pneumococcal Polyvalent Vaccine (Pneumovax-23 Inj) 25 mcg ONCE ONCE IM ; Start 12/25/17 at 10:00; Stop 12/25/17 at 10:01; Status DC Aspirin (Aspirin Chew) 81 mg DAILY CHEW Last administered on 12/26/17at 08:14; Start 12/24/17 at 11:45 Budesonide/ Formoterol Fumarate (Symbicort 160-4.5 Mcg Inh) 2 puff Q12HR INH Last administered on 12/26/17 08:18; Start 12/24/17 at 11:45 Cholecalciferol (Vitamin D3) 2,000 units DAILY PO Last administered on 08:13; Start 12/24/17 at 11:45 Diazepam (Valium) 5 mg BID PRN PO ANXIETY Last administered on 12/26/17 08:33 ; Start 12/24/17 at 11:45 EZETIMIBE (Zetia) 10 mg DAILY PO Last administered on 12/26/17 08:16; Start at 11:45 Gabapentin (Neurontin) 900 mg HS PO ; Start 12/24/17 at 21:00; Stop 12/24/17 at 21:00; Status DC Hydralazine HCl (Apresoline) 25 mg TID PO Last administered on 12/26/17 08:14 ; Start 12/24/17 at 13:00 Hydrochlorothiazide (Microzide) 12.5 mg DAILY PO Last administered on 08:14; Start 12/24/17 at 11:45 Metoprolol Tartrate (Lopressor) 50 mg DAILY PO Last administered on 12/26/17 08:19; Start 12/24/17 at 11:45 Tamsulosin HCl (Flomax) 0.4 mg DAILY PO Last administered on 12/26/17at 08:13; Start 12/24/17 at 11:45 Non-Formulary Medication 30 mg Q6H PRN PO PAIN; Start 12/24/17 at 11:45; Stop 12/24/17 at 12:34; Status DC Dextrose (D50w (Vial) Inj) 50 ml UNSCH PRN IV PUSH HYPOGLYCEMIA-SEE COMMENTS; Start 12/24/17 at 12:15 Glucagon (Glucagon Inj) 1 mg UNSCH PRN OTHER HYPOGLYCEMIA-SEE COMMENTS; Start 12/24/17 at 12:15 Clonidine (Catapres) 0.1 mg Q4H PRN PO SBP>160, DBP>90; Start 12/24/17 at 12:15 Insulin Aspart (NovoLOG SUPPLEMENTAL SCALE) 1 ACHS SLIDING SCALE SQ Last administered on 12/25/17at 17:00; Start 12/24/17 at 17:00 Sodium Chloride 1,000 ml @ 100 mls/hr Q10H IV Last administered on 12/24/17at 14:35; Start 12/24/17 at 13:00 Sodium Chloride (NS Flush) 2 ml UNSCH PRN IV FLUSH FLUSH AFTER USING IV ACCESS Last administered on 12/25/17at 18:38; Start 12/24/17 at 12:30 Sodium Chloride (NS Flush) 2 ml BID IV FLUSH Last administered on 12/26/17at 08: 18; Start 12/24/17 at 21:00 Acetaminophen (Tylenol) 650 mg Q4H PRN PO TEMP > 100.4; Start 12/24/17 at 12:30 Ondansetron HCl (Zofran Odt) 4 mg Q6H PRN PO NAUSEA OR VOMITING; Start at 13:00 Metoclopramide HCl (Reglan Inj) 5 mg Q6H PRN IV PUSH NAUSEA OR VOMITING; Start 12/24/17 at 12:30 Enoxaparin Sodium (Lovenox Inj) 40 mg Q24H SQ Last administered on 12/25/17at 13 :25; Start 12/24/17 at 14:00 Acetaminophen (Tylenol) 650 mg Q6H PRN PO PAIN SCALE 1 TO 2; Start 12/24/17 at 12:30 Oxycodone/ Acetaminophen (Percocet 5-325 Mg) 1 tab Q6H PRN PO PAIN SCALE 3 TO 5; Start 12/24/17 at 12:30 Oxycodone/ Acetaminophen (Percocet 10-325 Mg) 1 tab Q6H PRN PO PAIN SCALE 6 TO 10; Start 12/24/17 at 12:30 Morphine Sulfate (Morphine Inj) 2 mg Q3H PRN IV PUSH Pain 3-5; if unable to take PO; Start 12/24/17 at 13:00 Morphine Sulfate (Morphine Inj) 4 mg Q3H PRN IV PUSH Pain 6-10;if unable to take PO; Start 12/24/17 at 13:00 Morphine Sulfate (Morphine Inj) 4 mg Q3H PRN IV PUSH BREAKTHROUGH PAIN; Start 12/24/17 at 13:00 Naloxone HCl (Narcan Inj) 0.4 mg UNSCH PRN IV PUSH SEE LABEL COMMENTS; Start at 12:30 Senna/Docusate Sodium (Rekha-Colace) 1 tab BID PO Last administered on at 20:40; Start 12/24/17 at 21:00 Magnesium Hydroxide (Milk Of Magnesia Liq) 30 ml Q12H PRN PO Mild constipation ; Start 12/24/17 at 12:30 Sennosides (Senokot) 17.2 mg Q12H PRN PO Moderate constipation; Start 12/24/17 at 12:30 Bisacodyl (Dulcolax Supp) 10 mg DAILY PRN RECTAL SEVERE CONSITIPATION; Start at 12:30 Lactulose (Lactulose Liq) 30 ml DAILY PRN PO SEVERE CONSITIPATION; Start at 12:30 Sodium Chloride (NS Flush) 2 ml UNSCH PRN IV FLUSH FLUSH AFTER USING IV ACCESS ; Start 12/24/17 at 12:30; Stop 12/24/17 at 13:01; Status DC Sodium Chloride (NS Flush) 2 ml BID IV FLUSH ; Start 12/24/17 at 21:00; Stop at 21:00; Status DC Ceftriaxone Sodium 1000 mg/ Sodium Chloride 100 ml @ 200 mls/hr Q24H IV Last administered on 12/25/17at 13:25; Start 12/24/17 at 14:00 Azithromycin 500 mg/Sodium Chloride 250 ml @ 250 mls/hr Q24H IV Last administered on 12/25/17at 13:57; Start 12/24/17 at 15:00 Albuterol/ Ipratropium (Duoneb Neb) 1 ampule Q6HR NEB INH Last administered on 12/26/17at 08:01; Start 12/24/17 at 16:00 Albuterol/ Ipratropium (Duoneb Neb) 1 ampule Q4HR NEB PRN INH SHORTNESS OF BREATH; Start 12/24/17 at 12:30 Methylprednisolone Sodium Succinate (SoluMEDROL INJ) 60 mg Q6HR IV PUSH Last administered on 12/26/17at 05:55; Start 12/24/17 at 13:15 Guaifenesin (Mucinex Er) 1,200 mg ONCE ONCE PO Last administered on 12/24/17at 13:17; Start 12/24/17 at 13:00; Stop 12/24/17 at 13:01; Status DC Guaifenesin (Mucinex Er) 1,200 mg BID PO Last administered on 12/26/17at 08:36; Start 12/24/17 at 21:00 Oxycodone HCl (Roxicodone) 30 mg Q6H PO Last administered on 12/26/17at 08:16; Start 12/24/17 at 14:00 Gabapentin (Neurontin) 900 mg TID PO Last administered on 12/26/17at 08:16; Start 12/24/17 at 18:00 Potassium Chloride (KCl) 40 meq ONCE PO ; Start 12/25/17 at 13:45; Stop at 18:00; Status DC Potassium Chloride (KCl) 40 meq ONCE ONCE PO Last administered on 12/25/17at 16 :06; Start 12/25/17 at 15:45; Stop 12/25/17 at 15:46; Status DC Lactobacillus Acidophilus (Lactinex) 1 tab ONCE ONCE PO Last administered on at 19:59; Start 12/25/17 at 19:45; Stop 12/25/17 at 19:46; Status DC Lactobacillus Acidophilus (Lactinex) 1 tab TID PO ; Start 12/26/17 at 09:00 A/P Problem List: (1) COPD (chronic obstructive pulmonary disease) ICD Code: J44.9 - Chronic obstructive pulmonary disease, unspecified (2) COPD exacerbation ICD Code: J44.1 - Chronic obstructive pulmonary disease with (acute) exacerbation (3) Hypertension ICD Code: I10 - Essential (primary) hypertension (4) Osteoarthritis ICD Code: M19.90 - Unspecified osteoarthritis, unspecified site (5) Tobacco abuse ICD Code: Z72.0 - Tobacco use (6) Obese ICD Code: E66.9 - Obesity, unspecified (7) BPH (benign prostatic hyperplasia) ICD Code: N40.0 - Benign prostatic hyperplasia without lower urinary tract symptoms (8) Anxiety ICD Code: F41.9 - Anxiety disorder, unspecified (9) Hyperlipidemia ICD Code: E78.5 - Hyperlipidemia, unspecified (10) Chronic pain ICD Code: G89.29 - Other chronic pain Assessment and Plan COPD exacerbation borderline pneumonia Continue on antibiotics with Rocephin and Zithromax Continue on his Symbicort Duo nebs every 6 hours and every 2 hours as needed Incentive spirometry Mucinex Hypertension resume home medications metoprolol and hydralazine and hydrochlorothiazide BPH resume Flomax Chronic pain resume his oxycodone 30 mg every 6 hours Anxiety resume his Valium Hyperlipidemia continue on his Zetia Gabapentin for chronic pain continue it Oxycodone for his chronic pain DVT and GI prophylaxis Hypokalemia will replace HYPONATREMIA- WILL GIVE NACL TABS TID Discharge Planning In the next 24-48 hours Morgan Martinez DO Dec 26, 2017 11:27
[2017-12-26] MEDS: SODIUM CHLORIDE 1 GRAM TAB PO SCH ×2 (12:36→20:14)
[2017-12-26] MEDS: ENOXAPARIN SODIUM 40 MG/0.4 ML SYRINGE SQ SCH (12:38)
[2017-12-26] MEDS: cefTRIAXone INJ 1,000 MG in SODIUM CHLORIDE 0.9% INJ 100 ML IV SCH (13:33)
[2017-12-26] MEDS: AZITHROMYCIN INJ 500 MG in SODIUM CHLOR 0.9% 250 ML INJ 250 ML IV SCH (14:36)
[2017-12-27 00:06] VITALS: BP 154/64; PULSE 81; RESP 18; TEMP 97.4; O2SAT 100
[2017-12-27] MEDS: methylPREDNISolone SOD SUCC 125 MG/2 ML VIAL IV PUSH SCH ×2 (00:33→05:39)
[2017-12-27] MEDS: SODIUM CHLOR 0.9% 1000 ML INJ 1,000 ML IV SCH (01:00)
[2017-12-27] MEDS: RESP: ALBUTEROL 2.5 MG/IPRATROPIUM 0.5 MG NEB (SCH) INH ×2 (03:27→09:35)
[2017-12-27 03:47] VITALS: PULSE 61
[2017-12-27 04:51] VITALS: BP 150/71; PULSE 69; RESP 18; TEMP 97.4; O2SAT 95
[2017-12-27] MEDS: SODIUM CHLORIDE 1 GRAM TAB PO SCH (05:38)
[2017-12-27] MEDS: DIAZEPAM 5 MG TAB PO PRN (06:29)
[2017-12-27 07:45] VITALS: BP 162/92; PULSE 70; RESP 20; TEMP 97.7; O2SAT 94
[2017-12-27] MEDS: METOPROLOL TARTRATE 50 MG TAB PO SCH (08:00)
[2017-12-27] MEDS: TAMSULOSIN HCL 0.4 MG CAP PO SCH (08:00)
[2017-12-27] MEDS: guaiFENesin E.R. 600 MG TAB PO SCH (08:00)
[2017-12-27] MEDS: DOCUSATE SODIUM 50 MG/SENNA 8.6 MG TAB PO SCH (08:00)
[2017-12-27] MEDS: INSULIN ASPART SUPPLEMENTAL SCALE SQ SCH (08:00)
[2017-12-27] MEDS: hydrALAZINE HCL 25 MG TAB PO SCH (08:00)
[2017-12-27] MEDS: CHOLECALCIFEROL (VIT D3) 1000 UNIT TAB PO SCH (08:01)
[2017-12-27] MEDS: LACTOBACILLUS ACIDOPHILUS TAB PO SCH (08:01)
[2017-12-27] MEDS: GABAPENTIN 300 MG CAP PO SCH (08:02)
[2017-12-27 08:55] VITALS: O2SAT 94
[2017-12-27] MEDS: SODIUM CHLORIDE 0.9% FLUSH 10 ML FLUSH IV FLUSH SCH (09:00)
[2017-12-27] MEDS: BUDESONIDE-FORMOTEROL 160/4.5 MCG INHALER INH SCH (09:00)
[2017-12-27] MEDS: EZETIMIBE 10 MG TAB PO SCH (09:00)
[2017-12-27] MEDS: ASPIRIN 81 MG CHEW TAB CHEW SCH (09:00)
[2017-12-27 09:11] LABS: AUTOMATED NEUTROPHIL # 8.1 TH/MM3 (1.8-7.7); BASOPHIL % 0.1 % (0.0-2.0); HEMATOCRIT 40.5 % (39.0-51.0); HEMOGLOBIN 13.7 GM/DL (13.0-17.0); LYMPH % 6.6 % (9.0-44.0); LYMPHOCYTE # 0.6 TH/MM3 (1.0-4.8); MEAN CELL VOLUME 87.7 FL (80.0-100.0); MEAN CORPUSCULAR HEMOGLOBIN 29.6 PG (27.0-34.0); MEAN CORPUSCULAR HGB CONC 33.7 % (32.0-36.0); MEAN PLATELET VOLUME 7.7 FL (7.0-11.0); MONO % 2.5 % (0.0-8.0); MONOCYTE # 0.2 TH/MM3 (0-0.9); NEUT % 90.8 % (16.0-70.0); PLATELET COUNT 270 TH/MM3 (150-450); RED BLOOD COUNT 4.62 MIL/MM3 (4.50-5.90); RED CELL DISTRIBUTION WIDTH 15.6 % (11.6-17.2); WHITE BLOOD COUNT 8.9 TH/MM3 (4.0-11.0)
--- NOTE | 2017-12-27 09:19 | HHI.PR ---
Subjective Remarks Follow-up visit COPD exacerbation, chronic pain. Patient seen and examined today. at the bedside. Patient states that he is doing a lot better. Reports occasional shortness of breath and dyspnea on exertion continues. His O2 has been decreased to 3-4 L now compared to 6 L prior. States that he always has this problem of exacerbation were and after he finishes the dose of steroids he comes back to the hospital. States that he has been going from one hospital after the other however he has no exacerbation. States that he plans to follow-up with the elementary school science teacher and be on a pulmonary program. Patient states that he has limited resources for his medication availability specially [facility]. States unable to afford any other medications, especially expensive inhalers. Discussed with patient possible tweaking of his medication and the need to really follow up with pulmonology as an outpatient. Denies chest pain, palpitations, headaches, dizziness. Denies fevers, chills, n/v/d. Denies dysuria. Objective Vitals Vital Signs Date Time Temp Pulse Resp B/P (MAP) Pulse Ox O2 Delivery O2 Flow Rate FiO2 12/27/17 08:55 94 Nasal Cannula 4.00 12/27/17 07:45 97.7 70 20 162/92 (115) 94 12/27/17 07:45 94 Nasal Cannula 4.00 Humidified 12/27/17 04:51 97.4 69 18 150/71 (97) 95 12/27/17 03:47 61 12/27/17 00:06 97.4 81 18 154/64 (94) 100 12/26/17 23:50 67 12/26/17 20:50 94 Nasal Cannula 6.00 12/26/17 20:15 Nasal Cannula 6.00 Humidified 12/26/17 20:12 97.4 75 18 162/81 (108) 96 12/26/17 20:11 97.4 75 18 162/81 (108) 97 12/26/17 19:38 78 12/26/17 18:06 97.0 87 17 150/81 (104) 94 12/26/17 12:30 67 12/26/17 12:28 97.2 66 17 144/79 (100) 97 I/O 12/26/17 12/26/17 12/26/17 12/27/17 12/27/17 12/27/17 07:00 15:00 23:00 07:00 15:00 23:00 Intake Total 480 ml 100 ml 720 ml Balance 480 ml 100 ml 720 ml Intake Oral 480 ml 720 ml IV Total 100 ml # Voids 4 4 # Bowel Movements 2 0 Result Diagram: 12/27/17 0659 12/26/17 0905 Objective Remarks GENERAL: This is a well-nourished, well-developed patient, in no apparent distress. SKIN: Warm and dry. HEENT: Normocephalic. Pupils equal round and reactive. Nose without bleeding. Airway patent. NECK: Trachea midline. No JVD. Supple. CARDIOVASCULAR: Regular rate and rhythm without murmurs, gallops, or rubs. RESPIRATORY: Moderate air entry. No wheezes, rales, or rhonchi. GASTROINTESTINAL: Abdomen soft, non-tender, nondistended. Bowel Sounds normoactive x4. MUSCULOSKELETAL: Extremities without clubbing, cyanosis, or edema. NEUROLOGICAL: Awake and alert. Oriented to time, place, person. No focal neuro deficit. Moves all extremities. Normal speech. Procedures None A/P Problem List: (1) COPD (chronic obstructive pulmonary disease) ICD Code: J44.9 - Chronic obstructive pulmonary disease, unspecified (2) COPD exacerbation ICD Code: J44.1 - Chronic obstructive pulmonary disease with (acute) exacerbation (3) Hypertension ICD Code: I10 - Essential (primary) hypertension (4) Osteoarthritis ICD Code: M19.90 - Unspecified osteoarthritis, unspecified site (5) Tobacco abuse ICD Code: Z72.0 - Tobacco use (6) Obese ICD Code: E66.9 - Obesity, unspecified (7) BPH (benign prostatic hyperplasia) ICD Code: N40.0 - Benign prostatic hyperplasia without lower urinary tract symptoms (8) Anxiety ICD Code: F41.9 - Anxiety disorder, unspecified (9) Hyperlipidemia ICD Code: E78.5 - Hyperlipidemia, unspecified (10) Chronic pain ICD Code: G89.29 - Other chronic pain Assessment and Plan Patient is a 67-year-old gentleman who presented initially to the [facility] emergency department with increasing shortness of breath. COPD exacerbation -Multiple emergency visits in different hospital secondary to exacerbation. -Patient states that every time he finishes steroid medication he ends back to the hospital. He has been in and out of multiple emergency rooms of different hospitals. This is possibly not due to just COPD exacerbation. There must be some noncompliant issues as patient states that he is unable to afford most of his medications. [facility] but has not seen her be followed by elementary school science teacher. He is also on chronic pain that when the E force was reviewed patient has been given oxycodone by different doctors from different emergency rooms. His latest was oxycodone 30 mg. Per review of E force, patient is only taking oxycodone 5mg [facility] by the [facility]. he was concerned about this and wanting pain meds prior to going home. Discussed extensively with patient that he will only be given medications for 3 days and with a lower dose since his E force has been reviewed. Verbalized understanding. -We will switch over medications to p.o. Levaquin during discharge. Prednisone 40 mg daily -He will need to follow-up with elementary school science teacher and PCP and outpatient -Continue with DuoNeb nebulization, Symbicort. Will add tiotropium. This is been all discussed extensively with patient. Hyponatremia -Patient was given sodium tabs he will continue daily. Patient will also have a BMP in 1 week, follow-up with PCP -Repeat sodium today 134 Chronic pain -We will continue oxycodone 10 mg every 6 hours 3 days when DC -Continue gabapentin Anxiety -Continue Valium BPH -Continue Flomax use Hyperlipidemia -Continue with Zetia DVT prop ambulatory Discharge Planning Plan to DC home today Digna Garcia Dec 27, 2017 09:19
[2017-12-27] MEDS ORDERED: SPIRCAP INH (09:24)
[2017-12-27] MEDS ORDERED: Albuterol-Ipratropium Neb INH (09:24)
[2017-12-27] MEDS ORDERED: TIOTROPIUM BROMIDE 18 MCG INH INH SCH (09:30)
[2017-12-27] MEDS ORDERED: predniSONE 20 MG TAB PO SCH (09:30)
[2017-12-27] MEDS ORDERED: AZITHROMYCIN 250 MG TAB PO SCH (09:30)
--- NOTE | 2017-12-27 09:34 | HHI.DCPOC ---
Discharge Care Plan Diagnosis: (1) COPD exacerbation (2) Chronic pain (3) BPH (benign prostatic hyperplasia) Your Health Problems Are: Cough Shortness of Breath Goals to Promote Your Health * To prevent worsening of your condition and complications * To maintain your health at the optimal level Directions to Meet Your Goals Take your medications as prescribed Follow your dietary instruction Follow activity as directed Keep your appointments as scheduled Take your immunizations and boosters as scheduled If your symptoms worsen call your PCP, if no PCP go to Urgent Care Center or Emergency Room Smoking is Dangerous to Your Health. Avoid second hand smoke Call the 24-hour hour crisis hotline for domestic abuse at Digna Garcia Dec 27, 2017 09:34
[2017-12-27 09:37] VITALS: O2SAT 97
[2017-12-27] MEDS ORDERED: LEVA750T9 PO (09:41)
[2017-12-27] MEDS ORDERED: OXYC-395 PO (09:41)
[2017-12-27] MEDS ORDERED: PRED20 PO (09:41)
[2017-12-27] MEDS ORDERED: LEVOFLOXACIN 750 MG TAB PO SCH (10:00)
[2017-12-27 10:46] LABS: ALBUMIN 3.2 GM/DL (3.4-5.0); ALT (GPT) 26 U/L (12-78); AST (GOT) 16 U/L (15-37); BICARBONATE 31.9 MEQ/L (21.0-32.0); BLOOD UREA NITROGEN 16 MG/DL (7-18); CALCIUM 8.8 MG/DL (8.5-10.1); CHLORIDE 94 MEQ/L (98-107); CREATININE 0.78 MG/DL (0.60-1.30); GLOMERULAR FILTRATION RATE 100 ML/MIN (>89); GLUCOSE,RANDOM 115 MG/DL (74-106); SODIUM (NA) 134 MEQ/L (136-145)
[2017-12-27 10:48] LABS: ALKALINE PHOSPHATASE 49 U/L (45-117); TOTAL BILIRUBIN ADULT 0.2 MG/DL (0.2-1.0); TOTAL PROTEIN 6.5 GM/DL (6.4-8.2)
--- NOTE | 2017-12-27 11:26 | HHI.DS ---
Discharge Summary Admission Date Dec 24, 2017 at 6:40 am Discharge Date: Dec 27, 2017 Admitting Diagnosis COPD exacerbation (1) COPD (chronic obstructive pulmonary disease) ICD Code: J44.9 - Chronic obstructive pulmonary disease, unspecified Diagnosis: Principal (2) COPD exacerbation ICD Code: J44.1 - Chronic obstructive pulmonary disease with (acute) exacerbation Diagnosis: Principal (3) Hypertension ICD Code: I10 - Essential (primary) hypertension Diagnosis: Secondary (4) Osteoarthritis ICD Code: M19.90 - Unspecified osteoarthritis, unspecified site Diagnosis: Secondary (5) Tobacco abuse ICD Code: Z72.0 - Tobacco use Diagnosis: Secondary (6) Obese ICD Code: E66.9 - Obesity, unspecified Diagnosis: Secondary (7) BPH (benign prostatic hyperplasia) ICD Code: N40.0 - Benign prostatic hyperplasia without lower urinary tract symptoms Diagnosis: Secondary (8) Anxiety ICD Code: F41.9 - Anxiety disorder, unspecified Diagnosis: Secondary (9) Hyperlipidemia ICD Code: E78.5 - Hyperlipidemia, unspecified Diagnosis: Secondary (10) Chronic pain ICD Code: G89.29 - Other chronic pain Diagnosis: Secondary Procedures None Brief History - From Admission Patient is a 67-year-old gentleman who presented initially to the [facility] emergency department with increasing shortness of breath. Patient has known COPD and is on chronic steroids and oxygen at home. He states that he ran out of some of his medications also. He is waiting for the [facility] to refill them. He is on oxygen at home. Somewhere between 2-5 L/ h came in with increasing shortness of breath and was noted to have a pulse ox about 80% when he arrived off oxygen but he again is chronically on oxygen and has increasing shortness of breath and cough and congestion Will be admitted and placed on antibiotics and steroids Mucinex incentive spirometry and will be given diet CBC/BMP: 12/27/17 0659 12/27/17 0659 Significant Findings Laboratory Tests Test 12/24/17 15:02 12/24/17 20:39 12/25/17 04:53 12/26/17 09:03 Troponin I LESS THAN 0.02 NG/ML LESS THAN 0.02 NG/ML Red Blood Count 4.37 MIL/MM3 (4.50-5.90) Hematocrit 38.3 % (39.0-51.0) Neutrophils (%) (Auto) 89.5 % (16.0-70.0) 92.7 % (16.0-70.0) Lymphocytes (%) (Auto) 8.2 % (9.0-44.0) 4.5 % (9.0-44.0) Neutrophils # (Auto) 8.1 TH/MM3 (1.8-7.7) 10.0 TH/MM3 (1.8-7.7) Lymphocytes # (Auto) 0.7 TH/MM3 (1.0-4.8) 0.5 TH/MM3 (1.0-4.8) Random Glucose 156 MG/DL (74-106) Albumin 3.0 GM/DL (3.4-5.0) Sodium Level 131 MEQ/L (136-145) Potassium Level 3.3 MEQ/L (3.5-5.1) Chloride Level 88 MEQ/L (98-107) Carbon Dioxide Level 36.2 MEQ/L (21.0-32.0) Thyroid Stimulating Hormone 3rd Gen 0.102 uIU/ML (0.358-3.740) Test 12/26/17 09:05 12/27/17 06:59 Random Glucose 112 MG/DL (74-106) 115 MG/DL (74-106) Albumin 3.1 GM/DL (3.4-5.0) 3.2 GM/DL (3.4-5.0) Sodium Level 126 MEQ/L (136-145) 134 MEQ/L (136-145) Chloride Level 87 MEQ/L (98-107) 94 MEQ/L (98-107) Neutrophils (%) (Auto) 90.8 % (16.0-70.0) Lymphocytes (%) (Auto) 6.6 % (9.0-44.0) Neutrophils # (Auto) 8.1 TH/MM3 (1.8-7.7) Lymphocytes # (Auto) 0.6 TH/MM3 (1.0-4.8) Phosphorus Level 2.0 MG/DL (2.5-4.9) Imaging Previous imaging from [facility] has been reviewed. PE at Discharge GENERAL: Alert and oriented talkative and cooperative in no acute distress SKIN: Warm and dry. HEAD: Atraumatic. Normocephalic. EYES: Pupils equal and round. No scleral icterus. No injection or drainage. Extraocular muscles intact ENT: No nasal bleeding or discharge. Mucous membranes pink and moist. NECK: Trachea midline. No JVD. Supple CARDIOVASCULAR: Regular rate and rhythm. S1-S2 no S3 or S4 RESPIRATORY: No accessory muscle use. Decreased breath sounds bilaterally. Breath sounds equal bilaterally. GASTROINTESTINAL: Abdomen soft, non-tender, nondistended. Hepatic and splenic margins not palpable. Obese MUSCULOSKELETAL: Extremities without clubbing, cyanosis, or edema. No obvious deformities. NEUROLOGICAL: Awake and alert. No obvious cranial nerve deficits. Motor grossly within normal limits. Five out of 5 muscle strength in the arms and legs. Normal speech. PSYCHIATRIC: Appropriate mood and affect; insight and judgment normal. Pt update on day of discharge Follow-up visit COPD exacerbation, chronic pain. Patient seen and examined today. at the bedside. Patient states that he is doing a lot better. Reports occasional shortness of breath and dyspnea on exertion continues. His O2 has been decreased to 3-4 L now compared to 6 L prior. States that he always has this problem of exacerbation were and after he finishes the dose of steroids he comes back to the hospital. States that he has been going from one hospital after the other however he has no exacerbation. States that he plans to follow-up with the [facility] and be on a pulmonary program. Patient states that he has limited resources for his medication availability specially he is [facility]. States unable to afford any other medications, especially expensive inhalers. Discussed with patient possible tweaking of his medication and the need to really follow up with pulmonology as an outpatient. Denies chest pain, palpitations, headaches, dizziness. Denies fevers, chills, n/v/d. Denies dysuria. Hospital Course Patient is a 67-year-old gentleman who presented initially to the [facility] emergency department with increasing shortness of breath. He was treated with azithromycin, ceftriaxone, IV steroids, high-dose flow of oxygen. Patient has been improving daily. Per review of previous records and patient reporting he has multiple emergency visits in different hospital secondary to exacerbation. Patient states that every time he finishes steroid medication he ends back to the hospital. He has been in and out of multiple emergency rooms of different hospitals. This is possibly not due to just COPD exacerbation. There must be some noncompliant issues as patient states that he is unable to afford most of his medications. [facility] but has not seen her be followed by [facility]. He is also on chronic pain that when the E force was reviewed patient has been given oxycodone by different doctors from different emergency rooms. His latest was oxycodone 30 mg. Per review of E force, patient is only taking oxycodone 5mg given by the [facility]. he was concerned about this and wanting pain meds prior to going home. Discussed extensively with patient that he will only be given medications for 3 days and with a lower dose since his E force has been reviewed. Verbalized understanding. He will be switched over to Levaquin p.o. during discharge and also will be switched to prednisone 20 mg twice daily. He will continue DuoNeb nebulization, albuterol rescue inhaler, Symbicort, and tiotropium inhaler. He needs a follow-up with [facility] and PCP and outpatient setting which was discussed with him. He also was found to have hyponatremia during his hospitalization were and he was given sodium tablets and IV fluids. His current sodium level is 134. He will continue to have sodium tabs and will need to repeat sodium levels in 1 week with PCP. Patient has chronic pain were and he was treated with oxycodone 30 mg in the inpatient but will be discharged with oxycodone 10 mg every 6 hours as needed as per review of E force records, patient is being given [facility]codone 5 mg via [facility]. Patient teaching on COPD management reinforced. Patient has met maximal benefits of hospitalization. Clinically stable for discharge. Pt Condition on Discharge: Stable Discharge Disposition: Discharge Home Discharge Time: <= 30 minutes Discharge Instructions DIET: Follow Instructions for: Heart Healthy Diet Activities you can perform: Regular-No Restrictions Activities to Avoid: Driving for 24 hrs Follow up Referrals: PCP Follow-up - 2-3 Days Pulmonology - 3-5 Days New Orders: BASIC METABOLIC PROF - 1 Week New Medications: Sodium Chloride (Sodium Chloride) 1 Gram Tab 1 GM PO DAILY for Electrolyte Replacement for 14 Days, #28 TAB 0 Refills Levofloxacin (Levaquin) 750 Mg Tablet 750 MG PO DAILY for COPD Exac, #5 TAB Oxycodone (Oxycodone) 10 Mg Tab 10 MG PO Q6H for Pain Management, #12 TAB Prednisone (Prednisone) 20 Mg Tab 20 MG PO BID for COPD Exac, #14 TAB Tiotropium Inh (Spiriva Handihaler) 18 Mcg Cap 18 MCG INH DAILY for COPD, #30 CAP 1 capsule = 18 mcg [Albuterol-Ipratropium Neb] () 1 AMPULE NEBU 1 AMPULE INH Q6HR NEB for COPD, #120 AMPULE Continued Medications: Aspirin (Aspirin) 81 Mg Chew 81 MG CHEW DAILY, TAB 0 Refills Budesonide-Formoterol Inh (Symbicort Inh) 160-4.5 Mcg/Act Aero 2 PUFF INH Q12HR, #1 INHALER 0 Refills Cholecalciferol (Vitamin D-1000) 1,000 Unit Tab 2000 MG PO DAILY for Nutritional Supplement, #1 BOTTLE 0 Refills Diazepam (Diazepam) 5 Mg Tab 5 MG PO BID PRN for ANXIETY, TAB 0 Refills Ezetimibe (Zetia) 10 Mg Tab 10 MG PO DAILY, #30 TAB 0 Refills Gabapentin (Gabapentin) 300 Mg Cap 900 MG PO HS, #90 CAP 0 Refills Hydralazine HCl (Hydralazine HCl) 25 Mg Tablet 25 MG PO TID for Blood Pressure Management, #90 TAB 0 Refills Hydrochlorothiazide (Hydrochlorothiazide) 12.5 Mg Cap 12.5 MG PO DAILY, #30 CAP 0 Refills Metoprolol Tartrate (Metoprolol Tartrate) 50 Mg Tab 50 MG PO DAILY, #30 TAB 0 Refills Oxycodone (Oxycodone) 30 Mg Tab 30 MG PO Q6H PRN for PAIN, TAB 0 Refills Tamsulosin (Flomax) 0.4 Mg Cap 0.4 MG PO DAILY for Manage Prostate Problems, #30 CAP 0 Refills Digna Garcia Dec 27, 2017 11:26
[2017-12-27] MEDS ORDERED: SODI1TAB PO (11:34)
== END 2017-12-27 11:20 | disposition home or self-care (01) | DRG 190 ==
LOC: NEDDLT 22:07 → N06A 12-24 06:40
PROVIDERS: ADMIT Family Medicine; ATTEND Family Medicine
DX: J44.1 Chronic obstructive pulmonary disease with (acute) exacerbation (principal); J18.9 Pneumonia, unspecified organism; Z99.81 Dependence on supplemental oxygen; Z79.52 Long term (current) use of systemic steroids; E87.1 Hypo-osmolality and hyponatremia; J44.0 Chronic obstructive pulmonary disease with (acute) lower respiratory infection; E87.6 Hypokalemia; I10 Essential (primary) hypertension; M19.90 Unspecified osteoarthritis, unspecified site; E66.9 Obesity, unspecified; Z68.38 Body mass index [BMI] 38.0-38.9, adult; N40.0 Benign prostatic hyperplasia without lower urinary tract symptoms; F41.9 Anxiety disorder, unspecified; E78.5 Hyperlipidemia, unspecified; G89.29 Other chronic pain; Z91.19 Patient's noncompliance with other medical treatment and regimen; Z87.891 Personal history of nicotine dependence
CPT/HCPCS: 80053; 82550; 82948; 83036; 83735; 84100; 84439; 84443; 84484; 85025; 87040; 94150; 94640; 94664; J0456; J0696; J1650; J1815; J2930; J7030; J7050; J7512